=== PATIENT | female | born 1975 | race Caucasian/White ===

== ENCOUNTER 2020-12-12 11:07 | Outpatient (CLI) | payer BC, SELFPAY ==
--- NOTE | 2020-12-12 11:13 | MM_ITS ---
WS: [id number] BILATERAL DIGITAL SCREENING MAMMOGRAM WITH CAD CLINICAL INFORMATION: SCREENING HISTORY: Screening mammogram. No current complaints. COMPARISON: TECHNIQUE: Bilateral CC and MLO. FINDINGS: Bilateral breast implants appear intact. The breast are composed of extremely dense tissue, which can limit the detection of small underlying mass lesions. A few punctate calcifications. No suspicious focal mass, asymmetry, calcifications, or architectural distortion. No evidence of malignancy. MM/[id number] IMPRESSION: BI-RADS: 2-Benign FOLLOW UP: 1 Year Follow-up Recommend return to annual screening mammography.
== END 2020-12-12 11:08 | disposition home or self-care (01) ==
LOC: RADSHAW 11:11
PROVIDERS: PCP Family Medicine; Visit Provider Family Medicine
DX: Z12.31 Encounter for screening mammogram for malignant neoplasm of breast (principal)
CPT/HCPCS: 77067

== ENCOUNTER 2022-01-22 09:47 | Outpatient (CLI) | payer BC, SELFPAY ==
--- NOTE | 2022-01-22 09:59 | MM_ITS ---
WS: [id number] BILATERAL 3D TOMOSYNTHESIS DIGITAL SCREENING MAMMOGRAPHY WITH CAD CLINICAL INFORMATION: SCREENING HISTORY: Screening mammogram. No current complaints. COMPARISON: December 12, 2020 TECHNIQUE: Bilateral CC and MLO views. FINDINGS: Stable bilateral saline implants. The breasts are composed of heterogeneous fibroglandular density tissue, which can limit the detectio n of small underlying mass lesions. A few incidental punctate calcifications. No suspicious mass, asy mmetry, calcifications, or architectural distortion. No evidence of malignancy. MM/[id number] IMPRESSION: BI-RADS: 2-Benign FOLLOW UP: 1 Year Follow-up Recommend return to annual screening mammography.
== END 2022-01-22 09:48 | disposition home or self-care (01) ==
LOC: RAD 09:49
PROVIDERS: PCP Family Medicine; Visit Provider Family Medicine
DX: Z12.31 Encounter for screening mammogram for malignant neoplasm of breast (principal)
CPT/HCPCS: 77063; 77067

== ENCOUNTER 2023-05-19 14:06 | Outpatient (CLI) | payer BC, SELFPAY ==
--- NOTE | 2023-05-19 14:09 | MM_ITS ---
WS: [id number] BILATERAL 3D TOMOSYNTHESIS DIGITAL SCREENING MAMMOGRAPHY WITH CAD CLINICAL INFORMATION: SCREENING HISTORY: Screening mammogram. No current complaints. COMPARISON: 2021 TECHNIQUE: Bilateral CC and MLO views. FINDINGS: Bilateral breast implants appear intact. The breasts are composed of heterogeneous fibroglandular density tissue, which can limit the detectio n of small underlying mass lesions. No suspicious mass, asymmetry, calcifications, or architectural d istortion. No evidence of malignancy. A few incidental punctate calcifications. IMPRESSION: MM/[place] [id number] BI-RADS: 2-Benign FOLLOW UP: 1 Year Follow-up Recommend return to annual screening mammography.
== END 2023-05-19 14:07 | disposition home or self-care (01) ==
LOC: RAD 14:06
PROVIDERS: PCP Family Medicine; Visit Provider Family Medicine
DX: Z12.31 Encounter for screening mammogram for malignant neoplasm of breast (principal)
CPT/HCPCS: 77063; 77067

== ENCOUNTER 2023-08-20 06:57 | Day surgery (SDC) | payer BC, SELFPAY ==
[2023-08-20 07:18] VITALS: BP 137/88; PULSE 88; RESP 18; TEMP 36.1; O2SAT 98
--- NOTE | 2023-08-20 07:22 | P.ANESASSM_ITS ---
Pre-Anesthetic Assessment Height/Weight: Height 1.7 m Weight 68.039 kg Temp Pulse Resp BP Pulse Ox O2 Del Method 97.0 F L 88 18 137/88 98 Room Air 08/20/23 07:18 08/20/23 07:18 08/20/23 07:18 08/20/23 07:18 08/20/23 07:18 08/20/23 07:18 Operation Date: 08/20/23 08:00 [place] [address] colonoscopy G0121 screen colon a risk Z12.11(Not Applicable) - Jeremiah Guadarrama DO Last intake: Intake Last Liquid Date 08/19/23 Last Liquid Time 23:55 Last Solid Date 08/18/23 Last Solid Time 20:00 Social No alcohol and No tobacco Exam alert, oriented x 3, clear to auscultation bilaterally and regular rate & rhythm Airway Submandibular: within normal limits Cervical ROM: within normal limits Mallampati: Class II History/ROS No significant history except as noted and No significant complaints Pulmonary None reported CV/HEM None reported None reported Hepatic None reported GI None reported Metabolic None reported Musc/skel None reported Neuropsych None reported Anesthetic Plan ASA status: 2 Anesthesia: MAC Medications/Allergies Home Medications Medication Instructions Recorded Confirmed Last Taken Type alprazolam 0.5 mg tablet (Xanax) 0.5 mg PO BID PRN Anxiety 03/22/22 08/18/23 08/12/23 History bupropion HCl 300 mg 24 hr tablet, 300 mg PO QAM 03/22/22 08/18/23 08/19/23 History extended release (Wellbutrin XL) buspirone 15 mg tablet 15 mg PO DAILY 07/22/23 08/20/23 08/19/23 History dextroamphetamine-amphetamine 30 30 mg PO BID 07/22/23 08/18/23 08/19/23 History mg tablet (Adderall) sertraline 100 mg tablet 200 mg PO DAILY 07/22/23 08/18/23 08/19/23 History trazodone 100 mg tablet 100 mg PO BEDTIME 07/22/23 08/18/23 08/19/23 History Allergies Allergy/AdvReac Type Severity Reaction Status Date / Time No Known Allergies Allergy Unverified 07/22/23 08:08 [facility] Anesthesia Social History Smoking and tobacco/nicotine status: never used tobacco/nicotine Alcohol intake: current Alcohol intake frequency: few times a week Substance/Drug Use: never Data Anesthesia Cardiac Studies: No Data to Display
[2023-08-20 07:24] LABS: OR HCG Qualitative Urine Negative (Negative)
[2023-08-20] MEDS: sodium chloride 0.9% 1,000 ML 30 ML IV (07:26)
--- NOTE | 2023-08-20 07:49 | W.PM.OPSUD ---
Surgery/Procedure H&P Update DATE OF PROCEDURE: August 20, 2023 DATE H&P PERFORMED: 07/22/23 H&P UPDATE INFORMATION: I have reviewed H&P completed within last 30 days, I have examined patient prior to procedure and No changes to prior documentation PLANNED PROCEDURE: Operation Date: 08/20/23 08:00 Proposed Procedures p 15438 colonoscopy G0121 screen colon a risk Z12.11(Not Applicable) - Jeremiah Guadarrama, DO
[2023-08-20 08:15] VITALS: BP 93/50; PULSE 87; RESP 18; TEMP 36.4; O2SAT 97
[2023-08-20 08:30] VITALS: BP 111/64; PULSE 85; RESP 18; O2SAT 98
[2023-08-20 08:46] VITALS: BP 137/89; PULSE 86; RESP 18; O2SAT 98
--- NOTE | 2023-08-20 08:50 | ANE.PACU2 ---
Inpatient post-anesthesia follow up: Airway intact: Yes Vital signs: Temperature 97.5 F Pulse Rate 86 Respiratory Rate 18 Blood Pressure 137/89 Pulse Oximetry 98 Oxygen Delivery Me thod Room Air Oxygen Flow Rate Fraction of Inspir ed Oxygen Hydration adequate: Yes Nausea and vomiting: No Pain level: 1 Mental status: Baseline
[2023-08-26 10:15] LABS: Mismatch Repari Proteins-IHC See Report
== END 2023-08-20 08:51 | disposition home or self-care (01) ==
PROVIDERS: Anesthesiology; PCP Family Medicine; Visit Provider Surgery
PROC: 0DJD8ZZ Inspection of Lower Intestinal Tract, Via Natural or Artificial Opening Endoscopic (ICD-10-PCS; CPT 45378; principal; 2023-08-20 08:00)
DX: Z12.11 Encounter for screening for malignant neoplasm of colon (principal); K64.8 Other hemorrhoids; K57.30 Diverticulosis of large intestine without perforation or abscess without bleeding; C18.7 Malignant neoplasm of sigmoid colon
CPT/HCPCS: 45385; 81025; 84703; 88305; 88341; 88342; J2704; J3010; J7030

== ENCOUNTER → 2023-08-28 15:25 | Outpatient (BNVA) | payer BC, SELFPAY | PROVIDERS: PCP Family Medicine; Visit Provider Surgery | DX: C18.7 Malignant neoplasm of sigmoid colon (principal); Z51.81 Encounter for therapeutic drug level monitoring; Z79.1 Long term (current) use of non-steroidal anti-inflammatories (NSAID) | CPT/HCPCS: 36415; 71047; 80048; 82378; 85025 ==

== ENCOUNTER 2023-08-29 10:49 | Outpatient (CLI) | payer BC, SELFPAY ==
--- NOTE | 2023-08-29 11:00 | CT_ITS ---
WS: [id number] CT ABDOMEN AND PELVIS WITH CONTRAST HISTORY: adenomacarcinoma of sigmoid colon TECHNIQUE: Imaging performed of the abdomen and pelvis with IV contrast. Single phase imaging of the abdomen. Coronal and sagittal reformats are submitted. All CT scans at [facility] use at [address] one of these dose optimization techniques: automated exposure control; mA and/or kV adjustment per patient size (includes targeted exams where dose is matched to clinical indication); or iterative re construction. IV CONTRAST: Omnipaque 300; 95 mL IV. Oral contrast: None DLP: 306.60 mGy.cm COMPARISON: None available. Lower thorax: Lung bases are clear. Heart is normal size. No hiatal hernia. Liver/biliary system: Normal size with no intrahepatic dilatation. Gallbladder: Normal. No gallstones or wall thickening. No pericholecystic fluid. Pancreas: Normal size pancreas and pancreatic duct. No adjacent inflammation. Spleen: Normal size spleen. No mass or infarct. Adrenal glands: Normal. Right kidney: Normal. Left kidney: Simple cyst lower pole 3.5 x 3.1 cm. No obstruction. No solid mass. Aorta: Normal. Lymphadenopathy: None. Free fluid: None. GI tract: Normal stomach. No small bowel obstruction. No appendicitis. No colon obstruction. There is a solid mass in the LEFT adnexa abutting the sigmoid colon and also the uterus. No prior studies for comparison. This is a well rounded mass measuring 2.5 x 3.0 cm. Abdominal wall: Unremarkable abdominal wall. No hernia. Pelvis: IUD in position. Solid mass of increased attenuation in the LEFT adnexa measures 2.5 x 3.0 cm . May be ovarian. Bones: Unremarkable. IMPRESSION: 1. No GI tract obstruction. 2. Solid well-circumscribed mass in the LEFT adnexa measuring 2.5 x 3.0 cm. Mass is inseparable from the uterus and the sigmoid colon. Favor this is probably ovarian in etiology. With history of recent sigmoid carcinoma this could be part of the neoplasm but thought less likely. Mass appears to be abu tting and displacing but not invading the sigmoid colon. Consider additional evaluation by transvagin al pelvic ultrasound. 3. No definite colon lesions are identified. 4. IUD good position. 5. Simple cyst LEFT kidney.
[2023-08-29] MEDS: iohexol 350 mg/mL 100 mL Btl IV (11:43)
== END 2023-08-29 10:50 | disposition home or self-care (01) ==
LOC: RAD 10:49
PROVIDERS: PCP Family Medicine; Visit Provider Surgery
DX: C18.7 Malignant neoplasm of sigmoid colon (principal); R19.09 Other intra-abdominal and pelvic swelling, mass and lump; N28.1 Cyst of kidney, acquired
CPT/HCPCS: 74177; Q9967

== ENCOUNTER 2023-09-24 10:57 | Day surgery (SDC) | payer BC, SELFPAY ==
[2023-09-24 11:13] VITALS: BP 135/94; PULSE 92; RESP 18; TEMP 36.3; O2SAT 99
[2023-09-24 11:14] VITALS: BMI 23.5
[2023-09-24] MEDS: sodium chloride 0.9% 1,000 ML 30 ML IV (11:20)
[2023-09-24 11:26] LABS: OR HCG Qualitative Urine Negative (Negative)
--- NOTE | 2023-09-24 11:28 | ANES.PREANE2 ---
Pre-Anesthetic Assessment Height/Weight: Height 1.7 m Weight 68.039 kg Temp Pulse Resp BP Pulse Ox O2 Del Method 97.3 F L 92 18 135/94 99 Room Air 09/24/23 11:13 09/24/23 11:13 09/24/23 11:13 09/24/23 11:13 09/24/23 11:13 09/24/23 11:13 Operation Date: 09/24/23 12:00 [place] p [address]793 sigmoidoscopy, G0105 screen colon H risk C18.7(Not Applicable) - Jeremiah Guadarrama, DO Was Beta Adriana taken within 24 hours: N/A Was Clonidine taken within 24 hours: N/A Last intake: Intake Last Liquid Date 09/23/23 Last Liquid Time 14:00 Last Solid Date 09/22/23 Last Solid Time 20:00 Last Intake: 22:00 Social Alcohol and No tobacco Exam alert, oriented x 3, clear to auscultation bilaterally and regular rate & rhythm Airway Submandibular: within normal limits Cervical ROM: within normal limits Mallampati: Class II Comments: Comments: good dentition History/ROS No significant history except as noted Pulmonary None reported CV/HEM None reported None reported Hepatic None reported GI None reported Metabolic None reported Musc/skel None reported Neuropsych Anxiety Anesthetic Plan ASA status: 2 Anesthesia: MAC Risk of > 500 ml blood loss (7ml/kg in children): Yes, adequate IV access and fluids planned Medications/Allergies Home Medications Medication Instructions Recorded Confirmed Last Taken Type alprazolam 0.5 mg tablet (Xanax) 0.5 mg PO BID PRN Anxiety 03/22/22 09/22/23 1 Week Ago History ~09/15/23 bupropion HCl 300 mg 24 hr tablet, 300 mg PO QAM 03/22/22 09/24/23 09/23/23 History extended release (Wellbutrin XL) buspirone 15 mg tablet 15 mg PO DAILY 07/22/23 09/22/23 09/22/23 History dextroamphetamine-amphetamine 30 30 mg PO BID 07/22/23 09/24/23 09/23/23 History mg tablet (Adderall) sertraline 100 mg tablet 200 mg PO DAILY 07/22/23 09/24/23 09/23/23 History trazodone 100 mg tablet 100 mg PO BEDTIME 01/04/0609/24/23 09/23/23 History Allergies Allergy/AdvReac Type Severity Reaction Status Date / Time No Known Allergies Allergy Unverified 09/01/23 11:08 [facility] Anesthesia Surgical History (Updated 09/01/23 @ 11:11 by Jeremiah Guadarrama DO) H/O colonoscopy with polypectomy Social History Smoking and tobacco/nicotine status: never used tobacco/nicotine Alcohol intake: current Alcohol intake frequency: few times a week Substance/Drug Use: never Data Anesthesia Cardiac Studies: No Data to Display
--- NOTE | 2023-09-24 12:04 | P.HP_ITS ---
Providers/Chief Complaint Primary Care Provider: Noa Li MD Chief Complaint: C18.7 History of Present Illness Melodie Mcmahan is a 47 year old female who presents for a sigmoidoscopy to attempt to identify the polypectomy site which came back as adenocarcinoma so that it can be inked. She plans to have surgery at [facility] Review of Systems General: Reports: 10 or more systems reviewed and unremarkable except in HPI and below Medications/Allergies Home Medications Medication Instructions Recorded Confirmed Last Taken Type alprazolam 0.5 mg tablet (Xanax) 0.5 mg PO BID PRN Anxiety 03/22/22 09/22/23 1 Week Ago History ~09/15/23 bupropion HCl 300 mg 24 hr tablet, 300 mg PO QAM 03/22/22 09/24/23 09/23/23 History extended release (Wellbutrin XL) buspirone 15 mg tablet 15 mg PO DAILY 07/22/23 09/22/23 09/22/23 History dextroamphetamine-amphetamine 30 30 mg PO BID 07/22/23 09/24/23 09/23/23 History mg tablet (Adderall) sertraline 100 mg tablet 200 mg PO DAILY 07/22/23 09/24/23 09/23/23 History trazodone 100 mg tablet 100 mg PO BEDTIME 07/22/23 09/24/23 09/23/23 History Allergies Allergy/AdvReac Type Severity Reaction Status Date / Time No Known Allergies Allergy Unverified 09/01/23 11:08 PFSH Acute PFSH: Surgical History (Updated 09/01/23 @ 11:11 by Jeremiah Guadarrama DO) H/O colonoscopy with polypectomy Social History Smoking and tobacco/nicotine status: never used tobacco/nicotine Alcohol intake: current Alcohol intake frequency: few times a week Substance/Drug Use: never Vitals/I&O/Wt Last Vital Signs Temp 97.3 F L 09/24/23 11:13 Pulse 92 09/24/23 11:13 Resp 18 09/24/23 11:13 BP 135/94 09/24/23 11:13 Pulse Ox 99 09/24/23 11:13 O2 Del Method Room Air 09/24/23 11:13 Weight last 48 hrs Weight 150 lb Physical Exam Narrative: General : Patient is well developed , no acute distress, oriented x3 Head : Normal cephalic, a-traumatic. Ears : Pinnae and external canal are normal. Hearing is normal. Eyes : PERRLA, Sclera and injection are normal. No conjunctival discharge. Nose : Mucous membranes are without erythema. Throat : buccal mucosa is normal, gums are without significant recession or hypertrophy. Lungs : Equal chest rise bilaterally, no use of accessory muscles, trachea is midline. Cor : Rate and rhythm are normal. Abdomen : Soft, ND, NT, no g/r/m Extremities : No edema, no cyanosis or clubbing, dorsalis pedis pulses are present bilaterally, non-tender to palpation of calves. Upper extremities are normal bilaterally. Back : non-tender to palpation, no CVA tenderness. Neuro : CN II - XII intact, Upper and lower extremities have equal and full strength A&P Assessment and plan (1) Adenocarcinoma of sigmoid colon: Plan Sigmoidoscopy The risks and benefits of the procedure, including bleeding, infection, intestinal perforation requiring surgery, missed lesion were explained to the patient. The patient is understanding of the risks and wishes to proceed. Attestations Medical Necessity Statement*: Home Coding Level of Care Code Acute Code for [facility] Fwd Diagnoses Adenocarcinoma of sigmoid colon C18.7
[2023-09-24 12:29] VITALS: BP 95/56; PULSE 74; RESP 16; TEMP 36.3; O2SAT 100
[2023-09-24 12:41] VITALS: BP 126/81; PULSE 86; RESP 16; O2SAT 99
--- NOTE | 2023-09-24 12:50 | ANE.PACU2 ---
Inpatient post-anesthesia follow up: Airway intact: Yes Vital signs: Temperature 97.3 F Pulse Rate 86 Respiratory Rate 16 Blood Pressure 126/81 Pulse Oximetry 99 Oxygen Delivery Me thod Room Air Oxygen Flow Rate Fraction of Inspir ed Oxygen Hydration adequate: Yes Nausea and vomiting: No Pain level: 1 Mental status: Baseline
== END 2023-09-24 12:54 | disposition home or self-care (01) ==
PROVIDERS: Anesthesiology; PCP Family Medicine; Visit Provider Surgery
PROC: 0DJD8ZZ Inspection of Lower Intestinal Tract, Via Natural or Artificial Opening Endoscopic (ICD-10-PCS; CPT 45330; principal; 2023-09-24 12:00)
DX: C18.7 Malignant neoplasm of sigmoid colon (principal); K64.8 Other hemorrhoids; Z86.010 Personal history of colon polyps
CPT/HCPCS: 45333; 45335; 45338; 81025; 84703; 88305; J2704; J7030

== ENCOUNTER 2024-09-29 10:37 | Outpatient (CLI) | payer BC, SELFPAY ==
--- NOTE | 2024-09-29 10:40 | MM_ITS ---
WS: [id number] BILATERAL SCREENING DIGITAL BREAST MAMMOGRAPHY WITH SHREYAS DISPLACEMENT VIEWS. CAD PERFORMED. HISTORY: SCREENING COMPARISON: 05/19/2023, 01/22/2022 Bilateral craniocaudal and mediolateral oblique views are performed with tomosynthesis and SM. Shreyas displacement views in CC and MLO projection also performed. Breasts composition: The breasts are heterogeneously dense, which may obscure small masses. Retropectoral implants are intact. No capsular contraction. No suspicious masses or calcifications. MM/MM scr BI tomosynthesis [id number] IMPRESSION: BI-RADS: 2 - Benign FOLLOW-UP: 1 Year Follow-up
== END 2024-09-29 10:38 | disposition home or self-care (01) ==
PROVIDERS: PCP Electrodiagnostic Medicine; Visit Provider Electrodiagnostic Medicine
DX: Z12.31 Encounter for screening mammogram for malignant neoplasm of breast (principal); R92.333 Mammographic heterogeneous density, bilateral breasts; Z98.82 Breast implant status
CPT/HCPCS: 77063; 77067

== ENCOUNTER → 2024-10-19 11:01 | Outpatient (BNVA) | payer BC, SELFPAY | PROVIDERS: PCP Electrodiagnostic Medicine; Visit Provider Student in an Organized Health Care Education/Training Program | DX: G56.01 Carpal tunnel syndrome, right upper limb (principal) | CPT/HCPCS: 73130 ==